=== PATIENT | male | born 1980 | race Caucasian/White ===

== ENCOUNTER 2017-10-27 20:10 | Emergency (ER) | payer OTHER ==
--- NOTE | 2017-10-27 20:26 | PDOC ---
History of Present Illness - General History Source: Patient Exam Limitations: No Limitations - History of Present Illness Initial Comments: 10/27/17 20:39 The patient is a 36 year old male with no significant past medical history who presents to the ED with complaints of right tooth pain since earlier today. The patient reports sharp constant pain to his 30th tooth. He states his tooth pain is worsened when eating or swallowing. Patient reports taking 600 mg of advil with no relief of present symptoms. Patient has a dentist appointment on Sunday. Denies fever or chills. Denies facial numbness. Denies any other symptoms. <Suad Rodriguez - Last Filed: 10/27/17 20:39> <Kuldeep Fernandes - Last Filed: 10/27/17 21:15> - General Chief Complaint: Toothache Stated Complaint: RIGHT LOWER TOOTHACHE Time Seen by Provider: 10/27/17 20:12 Past History <Suad Rodriguez - Last Filed: 10/27/17 20:39> <Kuldeep Fernandes - Last Filed: 10/27/17 21:15> - Past Medical History Allergies/Adverse Reactions: Allergies Allergy/AdvReac Type Severity Reaction Status Date / Time No Known Allergies Allergy Verified 10/27/17 20:12 Home Medications: Ambulatory Orders Nabumetone 750 mg PO BID PRN #15 tablet 10/27/17 Penicillin V Potassium [Pen Vee K -] 500 mg PO QID #28 tablet 10/27/17 Review of Systems - Review of Systems Able to Perform ROS?: Yes Comments:: 10/27/17 20:39 CONSTITUTIONAL: Absent: Fever, Chills, Diaphoresis, Generalized Weakness, Malaise, Loss of Appetite HEENT: + tooth pain Absent: Rhinorrhea, Nasal Congestion, Throat Pain, Throat Swelling, Difficulty Swallowing, Mouth Swelling, Ear Pain, Eye Pain, Visual Changes CARDIOVASCULAR: Absent: Chest Pain, Syncope, Palpitations, Irregular Heart Rate, Lightheadedness , Peripheral Edema RESPIRATORY: Absent: Cough, Shortness of Breath, SOB with Exertion, Orthopnea, Wheezing, Stridor, Hemoptysis GASTROINTESTINAL: Absent: Abdominal pain, Abdominal Distension, Nausea, Vomiting, Diarrhea, Constipation, Melena, Hematochezia GENITOURINARY: Absent: Dysuria, Frequency, Urgency, Hesitancy, Flank Pain, Genital Pain MUSCULOSKELETAL: Absent: Myalgia, Arthralgia, Joint Swelling, Back pain, Neck Pain SKIN: Absent: Rash, Itching, PalloR HEMEATOLOGIC/IMMUNOLOGIC: Absent: Easy Bleeding, Easy Bruising, Lymphadenopathy, Frequent infections ENDOCRINE: Absent: Unexplained Weight Gain, Unexplained Weight Loss, Heat Intolerance, Cold Intolerance NEUROLOGIC: Absent: Headache, Focal Weakness, Paresthesias, Vertigo, Lightheadedness, Unsteady Gait, Seizure, Mental Status Changes, Incontinence PSYCHIATRIC: Absent: Anxiety, Depression All Other Systems: Reviewed and Negative <Suad Rodriguez - Last Filed: 10/27/17 20:39> *Physical Exam - Physical Exam Comments: 10/27/17 20:39 GENERAL: The patient is awake, alert, and fully oriented, in no acute distress. HEAD: Normal with no signs of trauma. No facial asymmetry. ORAL: + Tooth 30 with severe carious and no adjacent abscess. Mouth is soft. EYES: Pupils equal, round and reactive to light, extraocular movements intact, sclera anicteric, conjunctiva clear. EXTREMITIES: Normal range of motion, no edema. NEUROLOGICAL: Normal speech, normal gait. PSYCH: Normal mood, normal affect. SKIN: Warm, Dry, normal turgor, no rashes or lesions noted. <Suad Rodriguez - Last Filed: 10/27/17 20:39> Medical Decision Making - Medical Decision Making 10/27/17 20:58 Patient is a 36-year-old man with multiple carious teeth. He presents with a toothache tonight. On examination, tooth #30 shows severe caries and tap tenderness. There is no adjacent gum abscess. The face is symmetrical. The neck is soft and the floor of the mouth is soft. Voice is normal. Swallowing is normal. Breathing is normal. Impression: Carious tooth with toothache Plan: Pain relief and antibiotics. Dental follow up Sunday. <Kuldeep Fernandes - Last Filed: 10/27/17 21:15> *DC/Admit/Observation/Transfer - Attestations Scribe Attestion: 10/27/17 20:40 Documentation prepared by Suad Rodriguez, acting as center medical specialist for Kuldeep Fernandes MD <Suad Rodriguez - Last Filed: 10/27/17 20:39> - Discharge Dispostion Admit: No - Attestations Physician Attestion: 10/27/17 21:12 The scribe's documentation has been prepared under my direction and personally reviewed by me in its entirety. I have confirmed that the note above accurately reflects all work, treatment, procedures, and medical decision- making performed by me. <Kuldeep Fernandes - Last Filed: 10/27/17 21:15> Diagnosis at time of Disposition: Toothache - Discharge Dispostion Disposition: HOME Condition at time of disposition: Stable - Prescriptions Prescriptions: Nabumetone 750 mg PO BID PRN #15 tablet PRN Reason: tooth pain - Patient Instructions Printed Discharge Instructions: DI for Dental Pain Additional Instructions: You were evaluated today for dental pain. Follow-up with your dentist on Sunday as scheduled. Take penicillin 4 times a day. Take nabumetone twice a day as needed for pain. Take acetaminophen extra strength, 1000 mg, every 6 hours as needed for pain. Try oil of cloves applied to the tooth to help relieve the pain. Return to the emergency department for any severe or progressive symptoms.
[2017-10-27] MEDS ORDERED: ACETAMINOPHEN 500 MG TABLET (FP) PO ONE (20:32)
[2017-10-27 20:42] VITALS: BP 138/94; PULSE 63; TEMP 98.8; BMI 35.7
[2017-10-27] MEDS ORDERED: ACETAMINOPHEN 500 MG TABLET (FP) ONE (20:43)
[2017-10-27] MEDS ORDERED: PENICILLIN V POTASSIUM 500 MG TABLET PO ONE (21:14)
[2017-10-27] MEDS ORDERED: KETOROLAC TROMETHAMINE 30 MG/1 ML VIAL IM ONE (21:15)
[2017-10-27] MEDS ORDERED: CLINDAMYCIN HCL 300 MG CAPSULE PO ONE (21:15)
[2017-10-27] MEDS ORDERED: KETOROLAC TROMETHAMINE 30 MG/1 ML VIAL ONE (21:17)
[2017-10-27] MEDS ORDERED: CLINDAMYCIN HCL 150 MG CAPSULE (FP) ONE (21:17)
== END 2017-10-27 21:45 | disposition home or self-care (01) ==
LOC: FER 20:10
PROC: 3E0233Z Introduction of Anti-inflammatory into Muscle, Percutaneous Approach (ICD-10-PCS; principal; 2017-10-27)
DX: K08.89 Other specified disorders of teeth and supporting structures (principal)
CPT/HCPCS: 99282-25